=== PATIENT | male | born 1970 | race Caucasian/White ===

== ENCOUNTER → 2017-12-14 | Outpatient (CLI) | payer BC ==
--- NOTE | 2017-12-15 06:29 | RAD ---
Examination: Right knee, AP and lateral views History: Knee pain, no trauma Findings: There is no evidence for fracture, dislocation, bone destruction or arthritis. The patella is in normal position. The soft tissues are normal. Impression: No right knee abnormality identified. Reported By:
--- NOTE | 2017-12-15 06:30 | RAD ---
Examination: Left knee, three views History: Pain, no trauma Findings: There is no evidence for fracture, dislocation, arthropathy or synovial effusion. Impression: No significant abnormality identified in the left knee. Reported By:
== END ==
LOC: RAD 17:06
PROVIDERS: ATTEND Internal Medicine
DX: M25.561 Pain in right knee (principal); M25.562 Pain in left knee
CPT/HCPCS: 73560